=== PATIENT | male | born 1945 | race Caucasian/White ===

== ENCOUNTER 2017-10-22 18:25 | Emergency (ER) | payer OTHER, MEDICARE ==
[2017-10-22 18:41] VITALS: BP 138/76
[2017-10-22] MEDS ORDERED: HYDROXYZINE PAMOATE 25 MG CAPSULE (4 CAP/ER DISP) PO PRN (18:59)
--- NOTE | 2017-10-22 19:00 | ER Document Report ---
HPI - HPI Patient complains to provider of: Anxiety Pain Level: 0 Context: Patient is a 72-year-old male who presents emergency department after calling EMS for an acute anxiety attack. Patient states that he ran out of his Klonopin after taking his morning dose. He states that he takes 10 mg every morning. He states that he ran out of it and lost the prescription. He states that he started to get a little anxious over this and then his sons kept telling him to calm down and his anxiety progress. He felt nervous therefore he called EMS. He did receive 2 mg of Versed prior to arrival. Patient at this time states that he feels fine denies any anxiety, suicidal, homicidal ideations. He states that he feels fine to go home and states that [facility] Patient denies any chest pain, weakness, dizziness, headache, cough Past Medical History - Social History Smoking Status: Former Smoker Family History: Reviewed & Not Pertinent - Past Medical History Cardiac Medical History: Reports: Hx Hypertension Endocrine Medical History: Reports: Hx Diabetes Mellitus Type 2 Psychiatric Medical History: Reports: Hx Depression - anxiety/panic attacks Past Surgical History: Reports: Hx Tonsillectomy - Immunizations Hx Diphtheria, Pertussis, Tetanus Vaccination: Yes - states up to date Vertical Provider Document - CONSTITUTIONAL Agree With Documented VS: Yes Notes: PHYSICAL EXAM GENERAL: Alert, interacts well. HEAD: Normocephalic, atraumatic. EYES: Pupils equal, round, and reactive to light. Extraocular movements intact. ENT: Oral mucosa moist, tongue midline. NECK: Full range of motion. Supple. Trachea midline. LUNGS: Clear to auscultation bilaterally, no wheezes, rales, or rhonchi. No respiratory distress. HEART: Regular rate and rhythm. No murmurs, gallops, or rubs. NEUROLOGICAL: Alert and oriented x4. Normal speech. PSYCH: Normal affect, normal mood. SKIN: Warm, dry, normal turgor. No rashes or lesions noted. - INFECTION CONTROL TRAVEL OUTSIDE OF THE [place] IN LAST 30 DAYS: No - RESPIRATORY O2 Sat by Pulse Oximetry: 94 Course - Re-evaluation Re-evalutation: 10/22/17 18:57 Patient is a 72-year-old male who is hemodynamically stable, no acute distress and afebrile. Presentation is not concerning for an acute CO, PE, CVA, TIA. Patient is neurovascularly intact without any focal neurological deficits are concerning for ACS. Presentation is consistent with patient's chronic anxiety. Discussed with him that since [facility] there is no need to send him home with a prescription for the Klonopin but that we can give him Vistaril as needed for the evening. Patient agrees with plan and is stable for discharge home. - Vital Signs Vital signs: Temp Pulse Resp BP Pulse Ox 97.6 F 98 20 138/76 H 94 10/22/17 18:38 10/22/17 18:38 10/22/17 18:38 10/22/17 18:38 10/22/17 18:38 Discharge - Discharge Clinical Impression: Anxiety Condition: Good Disposition: HOME, SELF-CARE Instructions: Anxiety ([facility]) Additional Instructions: Please follow-up with the [facility] tomorrow as scheduled to have your medications refilled. Referrals: [facility] [Provider Group] - Follow up tomorrow
== END 2017-10-22 19:13 | disposition home or self-care (01) ==
LOC: ER 18:25
DX: F41.9 Anxiety disorder, unspecified (principal); I10 Essential (primary) hypertension; E11.9 Type 2 diabetes mellitus without complications
CPT/HCPCS: 99283; J3490